=== PATIENT | female | born 1945 | race Caucasian/White ===

== ENCOUNTER → 2021-12-05 | Outpatient (CLI) | payer MEDICARE, BC ==
[~2021-12-05] MED LIST: ASPIR-LOW81 MG PO; B 12; DIOVAN; PHENERGAN 25 TA25 MG PO; SINGULAIR; SPIREVA; ZYRTEC5 MG PO
== END ==
LOC: COL.VAS 10:23
DX: I35.1 Nonrheumatic aortic (valve) insufficiency (principal); J44.9 Chronic obstructive pulmonary disease, unspecified

== ENCOUNTER → 2021-12-12 | Outpatient (CLI) | payer MEDICARE, BC | LOC: COL.RAD 12:45 | DX: N28.1 Cyst of kidney, acquired (principal) ==